=== PATIENT | male | born 1985 | race Hispanic/Latino ===

== ENCOUNTER 2016-12-05 15:52 | Emergency (ER) | payer BC ==
[2016-12-05 15:58] VITALS: BP 137/76; PULSE 105; RESP 16; TEMP 98.6; O2SAT 95
[2016-12-05] MEDS ORDERED: Sodium Chloride 0.9% 1,000 ML IV STA (16:09)
--- NOTE | 2016-12-05 16:32 | ED PDOC ---
HPI: Psych/Substance Abuse Time Seen by Provider: 12/05/16 16:04 Chief Complaint (Nursing): Substance Abuse Chief Complaint (Provider): Substance Abuse History Per: Patient, EMS History/Exam Limitations: no limitations Onset/Duration Of Symptoms: Days (x 1) Current Symptoms Are (Timing): Still Present Additional Complaint(s): Gary is a 31 y/o male who states having no past medical history other than addiction to pain killers, which he buys off the street. Reports someone gave him 2 tabs of 30 mg oxycodone today, which is he chronically addicted to, which he took and then passed out. he is not sure it was oxycodone though. Only remembers waking up in ambulance. Per EMS patient was given Narcan and woke up. Pupils pinpoint on arrival. Denies heroin use. Denies fever and having any other medical complaints. Patient had 1 episode of vomiting, currently has residual nausea. 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) - Allergies Allergies/Adverse Reactions: Allergies Allergy/AdvReac Type Severity Reaction Status Date / Time pollen extracts Allergy ITCHING Verified 12/05/16 15:55 Review of Systems ROS Statement: Except As Marked, All Systems Reviewed And Found Negative Constitutional: Negative for: Fever Gastrointestinal: Positive for: Nausea, Vomiting (1 episode) Psych: Positive for: Other (substance abuse) Physical Exam - Reviewed Nursing Documentation Reviewed: Yes Vital Signs Reviewed: Yes - Physical Exam Appears: Positive for: Non-toxic, No Acute Distress (Slightly diaphoretic) Head Exam: Positive for: ATRAUMATIC, NORMAL INSPECTION, NORMOCEPHALIC Skin: Positive for: Normal Color, Warm, Diaphoresis Eye Exam: Positive for: Normal appearance (Pupils are small, otherwise reactive) , EOMI Neck: Positive for: Normal, Painless ROM, Supple Cardiovascular/Chest: Positive for: Regular Rate, Rhythm. Negative for: Murmur Respiratory: Positive for: Normal Breath Sounds. Negative for: Accessory Muscle Use, Respiratory Distress Gastrointestinal/Abdominal: Positive for: Normal Exam, Soft. Negative for: Tenderness Back: Positive for: Normal Inspection. Negative for: Vertebral Tenderness Extremity: Positive for: Normal ROM. Negative for: Pedal Edema, Deformity Neurologic/Psych: Positive for: Alert, Oriented (x3) - Laboratory Results Result Diagrams: 12/05/16 17:00 12/05/16 17:00 - ECG O2 Sat by Pulse Oximetry: 95 (RA) Pulse Ox Interpretation: Normal Medical Decision Making Medical Decision Making: Time: 16:08 Initial Plan: --Labs including urine drug screen, alcohol serum, acetaminophen, and salicylate --NS IV 1000 ml at 200 mls/hr --Zofran 4 mg IV --Pending reevaluation pt utox negative, could be a different drug not picked up on utox pt feels better w zofran. tolerated po .symptoms resolved. answerd pt questions and parents questions. pt advised on outpt detox Scribe Attestation: Documented by Elysia Wei, acting as a scribe for Jung Moreno MD Provider Scribe Attestation: All medical record entries made by the Scribe were at my direction and personally dictated by me. I have reviewed the chart and agree that the record accurately reflects my personal performance of the history, physical exam, medical decision making, and the department course for this patient. I have also personally directed, reviewed, and agree with the discharge instructions and disposition. Disposition - Clinical Impression Clinical Impression: Drug abuse - Patient ED Disposition Is Patient to be Admitted: No Counseled Patient/Family Regarding: Studies Performed, Diagnosis, Need For Followup - Disposition Referrals: [facility] [Outside] [facility] [Outside] Disposition: Routine/Home Disposition Time: 18:00 Condition: IMPROVED Additional Instructions: follow up with your primary doctor in 1-2 days return to the ED with any worsening or concerning symptoms. Instructions: Adult Overdose (ED) Forms: [employer] (Fijian)
[2016-12-05 17:06] LABS: BASO % 0.8 % (0.0-2.0); EOS # 0.5 K/uL (0.0-0.7); EOS % 8.2 % (0.0-4.0); HEMOGLOBIN 13.8 g/dL (12.0-18.0); LYMPH # 1.6 K/uL (1.0-4.3); LYMPH % 28.3 % (20.0-40.0); MEAN CELL VOLUME 89.8 fl (80.0-94.0); MEAN CORPUSCULAR HGB CONC 33.4 g/dL (33.0-37.0); MEAN PLATELET VOLUME 6.9 fl (7.2-11.7); MONO # 0.4 K/uL (0.0-0.8); MONO % 6.2 % (0.0-10.0); NEUT # 3.2 K/uL (1.8-7.0); NEUT % 56.5 % (50.0-75.0); NRBC % 0.1 % (0.0-0.0); RBC 4.6 Mil/uL (4.40-5.90); RED CELL DISTRIBUTION WIDTH 13.3 % (11.5-14.5); WHITE BLOOD COUNT 5.7 K/uL (4.8-10.8)
[2016-12-05 17:16] LABS: BLOOD UREA NITROGEN 16 mg/dl (9-20); CALCIUM 9.3 mg/dL (8.4-10.2); GFR AFRICAN-AMERICAN > 60; GFR NON-AFRICAN AMERICAN > 60
[2016-12-05 17:17] LABS: ACETAMINOPHEN < 10.0 ug/ml (10.0-30.0)
[2016-12-05 17:22] LABS: BARBITURATES, UR NEGATIVE (NEGATIVE); BENZODIAZEPINES, UR NEGATIVE (NEGATIVE); OPIATES, UR NEGATIVE (NEGATIVE); PHENCYCLIDINE, UR NEGATIVE (NEGATIVE)
[2016-12-05 17:47] LABS: SALICYLATE < 1.0 mg/dl
== END 2016-12-05 19:29 | disposition home or self-care (01) ==
LOC: H.ER 15:52
DX: F19.10 Other psychoactive substance abuse, uncomplicated (principal)
CPT/HCPCS: 80048; 85025; 96360; 96361; 99282; G0480; J2405; J7040